=== PATIENT | male | born 1975 | race Two or more races ===

== ENCOUNTER 2017-10-26 15:22 | Inpatient (IN) | payer OTHER, MEDICAID ==
[~2017-10-26] VITALS: Ht 167.6 cm; Wt 72.6 kg
[2017-10-26 21:29] LABS: BASOPHILS % 0.5 % (0.0-2.0); CHLORIDE 110 mEq/L (98-107); HEMATOCRIT. 33.3 % (42.0-52.0); HEMOGLOBIN. 10.8 g/dL (14.0-18.0); LYMPHOCYTES % 11.4 % (20.0-50.0); MEAN CORPUSCULAR HEMOGLOBIN 27.5 pg (28.0-32.0); MEAN CORPUSCULAR VOLUME 84.7 fL (80.0-94.0); MEAN PLATELET VOLUME 8.5 fl (7.4-10.4); MONOCYTES % 8.3 % (2.0-8.0); NEUTROPHILS % 77.8 % (40.0-76.0); PLATELET 268 x1000/uL (130-400); RED BLOOD CELL COUNT 3.93 mill/uL (4.7-6.1); RED CELL DISTRIBUTION WIDTH 16.9 % (11.6-14.6)
[2017-10-26 21:32] LABS: INR 1.2; PROTHROMBIN TIME 12.7 sec (9.4-11.6)
[2017-10-26 21:39] LABS: CARBON DIOXIDE 23 mEq/L (21-32)
[2017-10-26] MEDS ORDERED: PIPERACILLIN/TAZ 3.375G PREMIX 50 ML IV ONE (22:00)
[2017-10-26] MEDS ORDERED: SODIUM CHLORIDE 0.9% 1,000 ML IV ONE (22:00)
[2017-10-26] MEDS ORDERED: VANCOMYCIN 1 G PREMIX 200 ML IV ONE (22:00)
[2017-10-27] MEDS ORDERED: HYDROCODONE/ACETAMINOPHEN 5/325MG TABLET PO ONE (01:45)
[2017-10-27] MEDS ORDERED: DIPHENHYDRAMINE 50MG/ML VIAL IV ONE (01:45)
[2017-10-27] MEDS ORDERED: SODIUM CHLORIDE 0.9% 1,000 ML IV ONE (03:47)
[2017-10-27] MEDS ORDERED: SODIUM CHLORIDE 0.45% 1,000 ML IV SCH (06:11)
[2017-10-27] MEDS ORDERED: ACETAMINOPHEN 325MG TABLET PO PRN (06:15)
[2017-10-27] MEDS ORDERED: GUAIFENESIN 200MG/10ML SUGAR FREE UDC PO PRN (06:15)
[2017-10-27] MEDS ORDERED: LORAZEPAM 2MG/ML CPJ IV PRN (06:15)
[2017-10-27] MEDS ORDERED: IPRATROPIUM/ALBUTEROL 0.5-3(2.5)MG/3ML NEB INH PRN (06:15)
[2017-10-27] MEDS ORDERED: MAGNESIUM/ALUMINUM HYDROXIDE/SIMETHICONE 30ML UDC PO PRN (06:15)
[2017-10-27] MEDS ORDERED: ONDANSETRON HCL 4MG/2ML VIAL IV PRN (06:15)
[2017-10-27] MEDS ORDERED: DOCUSATE SODIUM 100MG CAPSULE PO PRN (06:15)
[2017-10-27] MEDS ORDERED: HYDROCODONE/APAP 7.5/325MG 1 TAB TABLET PO PRN (06:15)
[2017-10-27] MEDS ORDERED: MORPHINE SULFATE 2 MG/ML CPJ (NOT FOR IM USE) IV PRN (06:15)
[2017-10-27] MEDS ORDERED: NA PHOS,M-B/NA PHOS,DI-BA ENEMA 118ML PR PRN (06:15)
[2017-10-27] MEDS ORDERED: CLONIDINE 0.1MG TABLET PO PRN (06:15)
[2017-10-27] MEDS ORDERED: LORAZEPAM 0.5MG TABLET PO PRN (06:45)
[2017-10-27 07:36] VITALS: BP 116/74
[2017-10-27 08:00] VITALS: BP 116/74
[2017-10-27] MEDS ORDERED: LEVOFLOXACIN 500MG PREMIX 100 ML IV NR (09:00)
[2017-10-27 09:42] LABS: CLARITY URINE CLOUDY (CLEAR); COLOR URINE YELLOW (YELLOW); KETONES URINE TRACE (NEGATIVE); LEUKOCYTE ESTERASE URINE NEGATIVE (NEGATIVE); NITRITE URINE NEGATIVE (NEGATIVE); OCCULT BLOOD URINE NEGATIVE (NEGATIVE); PROTEIN URINE 1+ (NEGATIVE); SPECIFIC GRAVITY URINE 1.027 (1.005-1.030); UROBILINOGEN URINE 0.2 E.U./dL (0.2-1.0)
[2017-10-27] MEDS: DIPHENHYDRAMINE 50MG/ML VIAL IV PRN ×2 (11:05→17:48)
[2017-10-27] MEDS: METRONIDAZOLE 500 MG PREMIX 100 ML IV SCH ×2 (11:05→17:48)
[2017-10-27] MEDS: ENOXAPARIN 40MG/0.4ML SYR SUBCUT SCH (11:06)
[2017-10-27] MEDS: SODIUM CHLORIDE 0.45% 1,000 ML IV SCH (11:07)
[2017-10-27 12:00] VITALS: BP 133/70
[2017-10-27] MEDS ORDERED: METRONIDAZOLE 500 MG PREMIX 100 ML IV SCH (14:00)
[2017-10-27 15:48] VITALS: BP 103/55
[2017-10-27] MEDS ORDERED: FAMO20TA8 PO (17:08)
[2017-10-27] MEDS ORDERED: HYDR-4001 PO (17:08)
[2017-10-27] MEDS ORDERED: METO-539 PO (17:08)
[2017-10-27] MEDS: FAMOTIDINE 20MG TABLET PO SCH (17:48)
[2017-10-27] MEDS: METOPROLOL TARTRATE 50MG TABLET PO SCH (17:49)
[2017-10-27 20:00] VITALS: BP 103/61
[2017-10-28] VITALS: BP 96/50
[2017-10-28] MEDS: METRONIDAZOLE 500 MG PREMIX 100 ML IV SCH ×3 (02:49→17:32)
[2017-10-28] MEDS: DIPHENHYDRAMINE 50MG/ML VIAL IV PRN ×4 (02:54→22:17)
[2017-10-28 04:00] VITALS: BP 98/50
[2017-10-28] MEDS: SODIUM CHLORIDE 0.45% 1,000 ML IV SCH ×2 (05:58→12:25)
[2017-10-28 08:00] VITALS: BP 100/67
[2017-10-28] MEDS: FAMOTIDINE 20MG TABLET PO SCH (08:50)
[2017-10-28] MEDS: ENOXAPARIN 40MG/0.4ML SYR SUBCUT SCH (08:50)
[2017-10-28] MEDS: METOPROLOL TARTRATE 50MG TABLET PO SCH ×2 (08:51→17:32)
[2017-10-28] MEDS ORDERED: LEVOFLOXACIN 250MG PREMIX 50 ML IV SCH (09:00)
[2017-10-28 11:43] LABS: BASOPHILS % 0.4 % (0.0-2.0); EOSINOPHILS % 5.4 % (0.0-5.0); HEMOGLOBIN. 7.9 g/dL (14.0-18.0); LYMPHOCYTES % 14.1 % (20.0-50.0); MEAN CORPUSCULAR HEMOGLOBIN 28.2 pg (28.0-32.0); MEAN PLATELET VOLUME 8.7 fl (7.4-10.4); NEUTROPHILS % 73.1 % (40.0-76.0); PLATELET 165 x1000/uL (130-400); RED BLOOD CELL COUNT 2.79 mill/uL (4.7-6.1); RED CELL DISTRIBUTION WIDTH 17.1 % (11.6-14.6)
[2017-10-28 12:00] VITALS: BP 100/69
[2017-10-28 12:24] LABS: CARBON DIOXIDE 20 mEq/L (21-32); CHLORIDE 114 mEq/L (98-107); HDL CHOLESTEROL 34 mg/dL (40-59); LDL CHOLESTEROL 45 mg/dL (5-100)
[2017-10-28 16:00] VITALS: BP 113/74
[2017-10-28 20:18] VITALS: BP 109/61
[2017-10-29] VITALS: BP 115/70
[2017-10-29] MEDS: SODIUM CHLORIDE 0.45% 1,000 ML IV SCH (00:06)
[2017-10-29] MEDS: METRONIDAZOLE 500 MG PREMIX 100 ML IV SCH (02:08)
[2017-10-29] MEDS: DIPHENHYDRAMINE 50MG/ML VIAL IV PRN ×2 (03:28→09:38)
[2017-10-29 04:00] VITALS: BP 114/71
[2017-10-29 06:49] LABS: BASOPHILS % 0.7 % (0.0-2.0); EOSINOPHILS % 6.2 % (0.0-5.0); HEMATOCRIT. 22.4 % (42.0-52.0); HEMOGLOBIN. 7.4 g/dL (14.0-18.0); LYMPHOCYTES % 18.4 % (20.0-50.0); MEAN CORPUSCULAR HEMOGLOBIN 28.1 pg (28.0-32.0); MEAN CORPUSCULAR VOLUME 84.8 fL (80.0-94.0); MEAN PLATELET VOLUME 8.1 fl (7.4-10.4); MONOCYTES % 11.7 % (2.0-8.0); PLATELET 167 x1000/uL (130-400); RED BLOOD CELL COUNT 2.65 mill/uL (4.7-6.1); RED CELL DISTRIBUTION WIDTH 17.2 % (11.6-14.6)
[2017-10-29 08:00] VITALS: BP 110/65
[2017-10-29] MEDS: METOPROLOL TARTRATE 50MG TABLET PO SCH (09:00)
[2017-10-29] MEDS: FAMOTIDINE 20MG TABLET PO SCH (09:37)
[2017-10-29] MEDS: ENOXAPARIN 40MG/0.4ML SYR SUBCUT SCH (09:40)
[2017-10-29 10:32] VITALS: BP 110/66
[2017-10-29] MEDS ORDERED: FAMOTIDINE 20MG TABLET PO SCH (21:00)
[2017-10-30] MEDS ORDERED: LEVOFLOXACIN 500MG PREMIX 100 ML IV SCH (11:00)
== END 2017-10-29 11:20 | disposition home or self-care (01) | DRG 720 ==
LOC: ER 15:44 → 6WST 10-27 02:20 → EDBEDREQSVC 10-27 02:24 → ENRESERV 10-27 04:22
PROVIDERS: ADMIT Internal Medicine; ATTEND Internal Medicine
DX: A41.9 Sepsis, unspecified organism (principal); N17.0 Acute kidney failure with tubular necrosis; E46 Unspecified protein-calorie malnutrition; E87.5 Hyperkalemia; E66.01 Morbid (severe) obesity due to excess calories; D64.9 Anemia, unspecified; E86.0 Dehydration; N39.0 Urinary tract infection, site not specified; N18.9 Chronic kidney disease, unspecified; I12.9 Hypertensive chronic kidney disease with stage 1 through stage 4 chronic kidney disease, or unspecified chronic kidney disease; Z86.74 Personal history of sudden cardiac arrest; Z90.49 Acquired absence of other specified parts of digestive tract; Z93.3 Colostomy status; Z68.25 Body mass index [BMI] 25.0-25.9, adult; E83.52 Hypercalcemia
CPT/HCPCS: 36415; 74176; 76770; 80048; 80053; 80061; 81001; 83605; 85025; 85610; 87040; 87086; 93005; 96361; 96365; 96367; 96375; 97162; 99285; J1200; J1650; J1956; J2543; J3370; J3490; J7030